=== PATIENT | female | born 1985 | race Caucasian/White ===

== ENCOUNTER 2023-12-13 18:31 | Emergency (ER) | payer SELFPAY ==
[~2023-12-13] VITALS: Ht 160 cm; Wt 99.8 kg
== END 2023-12-13 19:01 | disposition left against medical advice (07) ==
LOC: SED 18:31
DX: L55.9 Sunburn, unspecified (principal)
CPT/HCPCS: 99283

== ENCOUNTER 2023-12-13 22:37 | Emergency (ER) | payer SELFPAY ==
[~2023-12-13] VITALS: Ht 160 cm; Wt 113.4 kg
[2023-12-13 22:40] VITALS: BP_SYST 136; PULSE 84; RESP 20; TEMP 99; O2SAT 97
[2023-12-13] MEDS ORDERED: CEFEPIME 1 GM in D5W 50 ML IV ONE (22:45)
[2023-12-14 01:16] VITALS: BP_SYST 148; PULSE 104; RESP 20; TEMP 97.2; O2SAT 99
== END 2023-12-13 23:18 | disposition left against medical advice (07) ==
LOC: SED 22:37
DX: L55.0 Sunburn of first degree (principal); L03.114 Cellulitis of left upper limb; L03.113 Cellulitis of right upper limb; L03.116 Cellulitis of left lower limb; L03.115 Cellulitis of right lower limb
CPT/HCPCS: 99283

== ENCOUNTER 2023-12-30 13:24 | Emergency (ER) | payer SELFPAY ==
[~2023-12-30] VITALS: Ht 160 cm; Wt 127.0 kg
[2023-12-30 13:45] VITALS: BP_SYST 116; PULSE 88; RESP 18; TEMP 97.9; O2SAT 97
== END 2023-12-30 14:35 | disposition left against medical advice (07) ==
LOC: SED 13:24
DX: R10.13 Epigastric pain (principal)
CPT/HCPCS: 99283

== ENCOUNTER 2023-12-30 15:38 | Emergency (ER) | payer SELFPAY ==
[~2023-12-30] VITALS: Ht 160 cm; Wt 127.0 kg
[2023-12-30 15:45] VITALS: BP_SYST 117; PULSE 95; RESP 18; TEMP 96.5; O2SAT 98
[2023-12-30 16:04] VITALS: BP_SYST 134; PULSE 105; RESP 18; TEMP 98.6; O2SAT 98
[2023-12-30 16:17] LABS: BASOPHILS % (AUTO) 0.3 % (0.0-2.0); EOSINOPHILS # (AUTO) 0.1 K/uL (0.0-0.4); EOSINOPHILS % (AUTO) 0.5 % (0.0-4.0); HEMATOCRIT 38.1 % (36-48); HEMOGLOBIN 13.1 g/dL (12.0-16.0); LYMPHOCYTES # (AUTO) 2.6 K/uL (1.0-5.5); LYMPHOCYTES % (AUTO) 17.7 % (20.5-51.5); MEAN CORPUSCULAR HEMOGLOBIN 32 pg (27-31); MEAN CORPUSCULAR HGB CONC 34 % (32-36); MEAN CORPUSCULAR VOLUME 93 fL (79.0-98.0); MONOCYTES # (AUTO) 0.6 K/uL (0.0-1.0); NEUTROPHILS # (AUTO) 11.6 K/uL (1.8-7.7); NEUTROPHILS % (AUTO) 77.5 % (40.0-70.0); PLATELET COUNT (AUTO) 510 K/uL (130-430); RED BLOOD CELL COUNT(AUTO) 4.11 MIL/uL (4.2-6.2); RED CELL DISTRIBUTION WIDTH 13.8 % (9.0-15.0); WHITE BLOOD COUNT (AUTO) 14.9 K/uL (4.8-10.8)
[2023-12-30 16:28] LABS: SERUM HCG (QUALITATIVE) NEGATIVE (NEGATIVE)
[2023-12-30 16:30] LABS: INR 0.9 (0.8-1.2); PROTHROMBIN TIME 9.8 SECS (9.5-12.5)
[2023-12-30 16:44] LABS: ALANINE AMINOTRANSFERASE 34 U/L (12-78); ALBUMIN 3.3 g/dL (3.4-4.8); ANION GAP 12 (5-15); ASPARTATE AMINOTRANSFERASE 25 U/L (10-37); CALCIUM 8.9 mg/dL (8.4-11.0); CARBON DIOXIDE 24 mmol/L (23-29); CHLORIDE 108 mmol/L (98-107); CREATININE 0.85 mg/dL (0.55-1.30); GFR AFRICAN AMERICAN 97 mL/min (>90); GLUCOSE 102 mg/dL (74-106); POTASSIUM 3.5 mmol/L (3.5-5.1); SODIUM SERUM 144 mmol/L (136-145); TOTAL BILIRUBIN 0.3 mg/dL (0.0-1.0); UREA NITROGEN, BLOOD 11 mg/dL (8-21)
[2023-12-30 16:54] LABS: GFR NON AFRICAN-AMERICAN 80 mL/min (>90)
[2023-12-30] MEDS: KETOROLAC TROMETHAMINE 60 MG/2 ML VIAL IM ONE (17:01)
[2023-12-30 17:04] LABS: BILIRUBIN,DIRECT 0.1 mg/dL (0.0-0.3); CREATINE KINASE, TOTAL 151 U/L (26-192); LIPASE 34 U/L (16-77)
== END 2023-12-30 17:03 | disposition left against medical advice (07) ==
LOC: SED 15:38
DX: R10.9 Unspecified abdominal pain (principal)
CPT/HCPCS: 36415; 80048; 80076; 82550; 83605; 83690; 84484; 84703; 85025; 85610; 85730; 93005; 99284